=== PATIENT | female | born 1945 | race Caucasian/White ===

== ENCOUNTER 2017-01-25 17:01 | Inpatient (IN) | payer MEDICARE, OTHER ==
--- NOTE | ~2017-01-25 | HP ---
Unit #: [id number] #: [id number] Patient: YORDY BECKER [id number] [facility] [place], [place] [address] [id number] I MR#: [id number] NAME: YORDY BECKER ROOM: 59988 Age: 71 Sex: F Admission Date: 01/25/2017 : 1945 Attending Physician: Kari Abbasi M.D. Primary Care Physician: Primary Care Physician No HISTORY AND PHYSICAL CHIEF COMPLAINT Low oxygen at dialysis. HISTORY OF PRESENT ILLNESS The patient is a 71-year-old female with past medical history of COPD, chronic respiratory failure, end-stage renal disease on dialysis, Elie granulomatosis, chronic anemia, hypothyroidism, lung cancer, who presented to the emergency department from dialysis for evaluation of the above. The patient states that she has had a two- to three-day history of increasing shortness of breath and nonproductive cough. She also reports fever and chills. She denies current chest pain but did have some chest discomfort about a week ago. She denies any vomiting or diarrhea. In the emergency department, temperature was 100.5, pulse 100, oxygen saturation 95% on 3 liters, blood pressure 108/88. Chest x-ray shows small right pleural effusion as well as scattered parenchymal opacities. White blood cell count is 14.8. She was given a gram of Tylenol, 125 mg of Solu-Medrol, 500 mL of normal saline as well as 15 grams of Kayexalate, vancomycin, Zosyn and tobramycin. Potassium is 5.7. She is being admitted to [facility] for evaluation and further treatment. PAST MEDICAL HISTORY 1. Admission to [facility] in January 2016 for lung cancer. She underwent resection (no records). She denies having radiation or chemotherapy. She sees Dr. Vargas. 2. COPD followed by Dr. Lopez. 3. Chronic respiratory failure on 3 liters of oxygen per nasal cannula. 4. End-stage renal disease on dialysis Wednesday, Wednesday, and Wednesday followed by Dr. Hogue. 5. Chronic anemia. 6. Hypothyroidism. 7. Echocardiogram, 08/25/2010, showed an ejection fraction greater than 55% with mild mitral regurgitation. PAST SURGICAL HISTORY 1. Lung resection for cancer. 2. Hysterectomy. 3. Back surgery. 4. Left breast lumpectomy. 5. Fistula right upper extremity. 6. EGD and colonoscopy. 7. Bilateral hip surgery. Unit #: [id number] #: [id number] Patient: YORDY BECKER ALLERGIES No known allergies. HOME MEDICATIONS Include: 1. Lyrica. 2. Symbicort. 3. Zofran. 4. Renvela. 5. Levothyroxine. 6. Midodrine. 7. Lasix. 8. Simvastatin. 9. Diazepam. 10. PhosLo. 11. Hydrocodone. 12. Sodium bicarbonate. 13. Omeprazole. 14. Prednisone. 15. Metronidazole. 16. Dicyclomine. Home medications will need to be reviewed and verified. SOCIAL HISTORY The patient quit smoking. She denies alcohol use. Her CODE STATUS is a FULL CODE. FAMILY HISTORY Notable for lung cancer. REVIEW OF SYSTEMS A complete review of systems is negative except as indicated in the HPI. PHYSICAL EXAMINATION VITAL SIGNS: Temperature 100.5, pulse 100, respirations 18, blood pressure 108/88, oxygen saturation is 95% on 3 liters. GENERAL: The patient is a female who is awake and alert in no acute distress. HEENT: Head is atraumatic. Mucous membranes are moist. NECK: Supple. Trachea is midline. LUNGS: Decreased breath sounds with a few scattered rhonchi. Breathing is not labored. HEART: Regular rate and rhythm. ABDOMEN: Soft, nontender. Bowel sounds present in all four quadrants. EXTREMITIES: Nontender with no pedal edema. NEUROLOGIC: Patient is awake and alert. She follows commands. PSYCHIATRIC: Mood and affect are normal. Patient is cooperative. SKIN: Demonstrates a few scattered ecchymoses involving the lower extremities. DIAGNOSTIC STUDIES LABORATORY: Complete blood count notable for white blood cell count of 14.8, platelets 125. Troponin less than 0.05. Comprehensive metabolic panel notable for potassium 5.7, chloride 93, BUN 21, creatinine 5.9. Lactic acid 1.2. Rapid flu screen is negative. Unit #: [id number] #: [id number] Patient: YORDY BECKER IMAGING: Chest x-ray shows possible small right pleural effusion as well as scattered parenchymal opacities. CARDIOVASCULAR: EKG shows sinus rhythm, with marked sinus arrhythmia at a rate of 97 beats per minute. ASSESSMENT The patient is a 71-year-old female with: 1. Pneumonia, concerning for possible healthcare-associated pneumonia. The patient received vancomycin, tobramycin and Zosyn in the emergency department. 2. Sepsis with lactic acid of 1.2. 3. Chronic obstructive pulmonary disease exacerbation. 4. Chronic respiratory failure on 3 liters of oxygen per nasal cannula. 5. End-stage renal disease on dialysis Wednesday, Wednesday, and Wednesday. 6. Hyperkalemia. The patient's potassium is 5.7. She received 15 grams of Kayexalate in the emergency department. 7. History of Elie granulomatosis. 8. Chronic anemia. 9. Hypothyroidism. 10. History of lung cancer, status post resection. 11. Former smoker. PLAN 1. Admit to intermediate level. 2. Healthy-heart diet if passes bedside swallow. 3. Normal saline at 75 mL per hour. 4. Blood cultures x2. 5. Sputum culture and sensitivity. 6. Procalcitonin level. 7. Vancomycin IV, tobramycin IV, Zosyn IV pending further workup. 8. DuoNeb q.4 h. p.r.n. 9. Solu-Medrol 80 mg IV q.12 h. 10. Sepsis protocol with repeat lactic acid. 11. Consult Dr. Lopez regarding COPD and possible pneumonia. 12. Supplemental oxygen. 13. Serial cardiac enzymes. 14. Repeat BMP later this evening to follow up hyperkalemia. 15. Consult Dr. Hogue regarding end-stage renal disease and dialysis needs. 16. Check TSH. 17. P.r.n. Tylenol. 18. Protonix for GI prophylaxis since the patient will be on Solu-Medrol. 19. SCDs for DVT prophylaxis. 20. Monitor blood pressure closely. 21. Repeat labs in the morning. 22. Additional workup and consultants based on above. Regarding CODE STATUS the patient is a FULL CODE. Dictated by Unit #: [id number] #: [id number] Patient: DOMEzekielYORDY M.D. AW/cs TD: 01/25/2017 19:44 JOB #: [id number] HISTORY AND PHYSICAL X Kari Abbasi MD HISTORY AND PHYSICAL
--- NOTE | ~2017-01-25 | EKG ---
PATIENT: YORDY BECKER UNIT #: [id number] Ventricular Rate: 97 BPM Atrial Rate: 89 BPM P-R Interval: 136 ms QRS Duration: 70 ms Q-T Interval: 342 ms QTC Calculation(Bezet): 434 ms P [place]: 57 degrees Calculated R [place]: -60 degrees Calculated T [place]: 48 degrees Diagnosis Line: Sinus rhythm with marked sinus arrhythmia Diagnosis Line: Left anterior fascicular block Diagnosis Line: Cannot rule out Inferior infarct (masked by Diagnosis Line: fascicular block?) , age undetermined Diagnosis Line: Cannot rule out Anterior infarct , age Diagnosis Line: undetermined Diagnosis Line: Abnormal ECG Diagnosis Line: When compared with ECG of 06-DEC-2014 00:39, Diagnosis Line: Premature atrial complexes are no longer Present Diagnosis Line: Minimal criteria for Anterior infarct are now Diagnosis Line: Present Diagnosis Line: QT has shortened Diagnosis Line: Confirmed by DANIELLE CANSECO MD ([id number]) on Diagnosis Line: 01/26/2017 8:17:40 AM INTERPRETING MD: HARLEEN WOLFE
--- NOTE | ~2017-01-25 | DS ---
Unit #: [id number] #: [id number] Patient: YORDY BECKER [id number] [address] [id number] I MR#: [id number] NAME: YORDY BECKER ROOM: 560 Age: 71 Sex: F Admission Date: 01/25/2017 : 1945 Discharge Date: 01/30/2017 Attending Physician: Thomas Barlow M.D. Primary Care Physician: Primary Care Physician No DISCHARGE SUMMARY HISTORY OF PRESENT ILLNESS This is a 71-year-old female, who has history of multiple medical problems, was admitted on 01/25/2017 for increasing shortness of air. She was admitted as a COPD exacerbation. She was treated with the IV antibiotic. At some point, she did receive the Zosyn and vancomycin, which was subsequently switched to the cefepime. She was also treated with the IV steroids. She clinically improved. Since she has known history of end-stage renal disease, she received hemodialysis. She also had a nonsustained ventricular tachycardia and atrial arrhythmia. She was seen by the Cardiology, Dr. Garsia's group. At some point, she did become bradycardic. She was seen by the Cardiology. Her metoprolol was discontinued and she is being discharged home. DISCHARGE DIAGNOSES Include chronic obstructive pulmonary disease exacerbation, atrial arrhythmias, nonsustained ventricular tachycardia, end-stage renal disease, on hemodialysis, hypothyroidism, anemia of chronic disease, Elie granulomatosis, history of orthostatic hypotension. MEDICATIONS At discharge include prednisone 10 mg daily, Lyrica 75 mg t.i.d., Zofran, diazepam 5 mg t.i.d., Omnicef 300 mg p.o. b.i.d., furosemide 20 mg b.i.d., simvastatin 20 mg by mouth at bedtime, midodrine 5 mg p.o. daily as needed, allopurinol 100 mg daily, hydrocodone with acetaminophen 7.5/325 mg one tablet p.o. t.i.d. as needed, sevelamer carbonate 800 mg p.o. t.i.d., omeprazole 40 mg daily, levothyroxine 50 mcg daily. CONDITION AT DISCHARGE Stable. DISPOSITION To home. FOLLOWUP Follow up with Cardiology as an outpatient. Follow up with nephrology group for further hemodialysis. Dictated by... Lisa Frye/emi Unit #: [id number] #: [id number] Patient: YORDY BECKER TD: 01/31/2017 19:23 JOB #: [id number] DISCHARGE SUMMARY X Milo Woodward MD X DISCHARGE SUMMARY
--- NOTE | ~2017-01-25 | CR72 ---
[facility] A Service of [facility] & [facility] RADIOLOGY TEXT RESULTS PATIENT: YRODY BECKER LOCATION: [facility] 560-01 : [birth year] UNIT #: [id number] AGE: [address]: EDEN CLANCY MD SEX: F ORDER DR: [id number] [facility] [address] [place], [place] [address] [id number] I MR#: [id number] Acc #: [id number] NAME: YORDY BECKER : 1945 SEX: F STUDY DATE/TIME: 01/25/2017 16:47 UNIT: [facility] ROOM: [facility] STUDY DESCRIPTION: CR Chest Single View Portable Attending Physician: Kari Abbasi M.D. Ordering Physician: Lalito Alvarez M.D. Primary Care Physician: Primary Care Physician No MEDICAL IMAGING REPORT This report is preliminary unless electronic signature is present EXAM Portable chest HISTORY Shortness of air, fever. COMPARISON 02/19/2016, CT chest 12/10/2016. FINDINGS AP portable view of the chest demonstrates right-sided volume loss with slight elevation of the right hemidiaphragm and a small right pleural effusion. Scattered parenchymal opacities are seen in the mid and lower lung zones most likely representing areas of atelectasis, scarring or fibrosis. Patchy areas of hyperinflation and hyperlucency compatible with background emphysema. Heart size within normal limits. Mediastinum unremarkable. Mild aortic atherosclerotic changes. No visible pneumothorax. Dictated by... Miquel Fernandez M.D. THIS IS AN ELECTRONICALLY VERIFIED REPORT Miquel Fernandez M.D. at 01/26/2017 6:31 PM DEBBY/nate TD: 01/26/2017 06:28 JOB #: [id number] MEDICAL IMAGING REPORT COPY
--- NOTE | ~2017-01-25 | EKG ---
PATIENT: YORDY BECKER UNIT #: [id number] Ventricular Rate: 58 BPM Atrial Rate: 58 BPM P-R Interval: 170 ms QRS Duration: 74 ms Q-T Interval: 450 ms QTC Calculation(Bezet): 441 ms P [place]: 41 degrees Calculated R [place]: -20 degrees Calculated T [place]: 28 degrees Diagnosis Line: Sinus bradycardia with Premature atrial complexes Diagnosis Line: with Aberrant conduction Diagnosis Line: Otherwise normal ECG Diagnosis Line: When compared with ECG of 28-JAN-2017 18:33, Diagnosis Line: (unconfirmed) Diagnosis Line: No significant change was found Diagnosis Line: Confirmed by MARIAM GRIFFITH MD ([id number]) on 01/30/2017 Diagnosis Line: 7:41:25 AM INTERPRETING MD: NACHO WOLFE
--- NOTE | ~2017-01-25 | HM ---
Unit #: [id number] #: [id number] Patient: YORDY BECKER [id number] [address] [id number] I MR#: [id number] NAME: YORDY BECKER : 1945 SEX: F STUDY DATE/TIME: UNIT: C5B ROOM: [facility] STUDY DESCRIPTION: Holter Monitor Attending Physician: Thomas Barlow M.D. Primary Care Physician: No Primary Care Physician CARDIOLOGY REPORT EXAM Holter Monitor DATE APPLIED 01/30/2017 DATE SCANNED 02/02/[address] Silas Barlow READ BY Dr. Silas Garsia REASON FOR TEST Bradycardia. COMMENTS 1. Underlying rhythm is normal sinus at an average heart rate of 63 beats per minute. Slowest recorded heart rate is 36, maximum recorded heart rate is 160. 2. Very frequent premature atrial contractions are noted. There are numerous premature atrial couplets. 3. There is one 23 beat run of supraventricular tachycardia at a rate of 135 beats/minute seen at 11:18 p.m. spontaneously converting to normal sinus rhythm. 4. Occasional periods of sinus bradycardia with an RR interval of 1.6 or 1.8 seconds are noted. 5. Very infrequent premature ventricular contractions were recorded. Computer erroneously counted PACs as PVCs and there are no documented runs of ventricular tachycardia on this monitored tracing. 6. There is no AV burton block, sinus arrest or sinus pause. 7. The patient did not report any symptoms or activity diary. IMPRESSION Abnormal 24 hour ambulatory monitoring shows: 1. Normal sinus rhythm. 2. Very frequent premature atrial contractions. 3. One run of paroxysmal supraventricular tachycardia at a rate of 140 per minute lasting 23 beats, spontaneously converting to normal sinus rhythm without intervening bradycardia. 4. No significant ventricular arrhythmias. Unit #: [id number] #: [id number] Patient: YORDY BECKER Dictated by... Lisa Blood TD: 02/19/2017 06:51 JOB #: [id number] CARDIOLOGY REPORT Page 1 of 1 X Kieran Garsia MD HOLTER MONITOR REPORT
--- NOTE | ~2017-01-25 | CO ---
Unit #: [id number] #: [id number] Patient: YORDY BRANDT [id number] [place], [place] [address] [id number] I MR#: [id number] NAME: YORDY BRANDT ROOM: 560 Age: 71 Sex: F Admission Date: 01/25/2017 : 1945 Attending Physician: Thomas Barlow M.D. Primary Care Physician: Ina Primary Care Physician Consultation Date: 01/28/2017 CONSULTATION REPORT REVISED REPORT REASON FOR CONSULTATION Bradycardia and second-degree AV block and frequent PVCs. HISTORY OF PRESENT ILLNESS This is a 71-year-old white female who has seen Dr. Ortega in the past, has a history of a nonobstructive CAD, had a cath in 2011, ejection fraction 55% to 60% on last echo 10/2016 and has mild pulmonary artery hypertension and also wears continuous oxygen and has chronic respiratory failure with COPD, has end-stage renal disease on hemodialysis, hypertension, hypothyroidism, chronic anemia, had lung cancer last year and it is in remission and report of some atrial arrhythmias on Holter a few years back. She was sent from the dialysis center with low O2 saturation. According to the patient, two to three days prior to admission she was having increased shortness of breath especially with exertion and an increased nonproductive cough and fever and chills. She denied any dizziness, chest pain, nausea or vomiting or diarrhea with the admission. She did mention that about a week ago she had an episode while she was sitting watching television in her chair that she had an onset of left anterior chest wall pain. She said it lasted about 10 or 15 minutes. She said it felt like just a squeezing sensation. She denied any radiation of the pain, denied any dizziness, presyncope or syncope, no diaphoresis or nausea. She said it resolved and there were no further issues. Patient has been complaining of some occasional palpitations but that has been ongoing. In the emergency room the patient was found by x-ray to have a probable pneumonia and was admitted for exacerbation of her COPD. She also was hyperkalemic, potassium was 5.7. She was given Kayexalate. She was started on IV antibiotics. She has been progressively improving. Her initial EKG showed sinus rhythm with a short run of what appears to be paroxysmal supraventricular tachycardia or atrial tachycardia. She has underlying sinus rhythm. Her telemetry today was showing a slowing of her ventricular rate. Telemetry shows runs of bradycardia with heart rate 38 to 46 beats per minute occasionally with nonconducted PACs and frequent PACs and occasional PVCs. Patient is asymptomatic. We have been consulted to assist with evaluation and management. PAST MEDICAL HISTORY 1. In 10/2016 a 2D echo, LVEF of 55% to 60% with elevated RVSP 36 mmHg, mild pulmonary artery hypertension and mild mitral regurgitation and impaired RV relaxation. 2. In 2011 cardiac cath revealed LVEF of 55% to 60% with very mild Unit #: [id number] #: [id number] Patient: YORDY BRANDT pulmonary hypertension and nonobstructive CAD and the LAD had less than 30% mid stenosis. 3. Hypertension. 4. Hyperlipidemia. 5. Chronic respiratory failure. 6. COPD, wears continuous home oxygen. 7. End-stage renal disease, on hemodialysis. 8. Hypothyroidism. 9. Chronic anemia, has a history of peptic ulcer disease. 10. Reformed smoker. 11. History of Elie granulomatosis. 12. History of atrial arrhythmias on a Holter in 2006. 13. Peripheral neuropathy. 14. History of lung carcinoma in 2016, had a resection and is in remission. 15. Peripheral neuropathy. 16. Orthostatic hypotension. 17. Patient is on the kidney transplant list and follows the transplant team. PAST SURGICAL HISTORY 1. Lung resection for cancer [place] [address] Vargas. 2. Hysterectomy. 3. Back surgery. 4. Left breast lumpectomy which was benign. 5. Fistula in the right upper extremity. 6. EGD and colonoscopy. 7. Bilateral hip surgery. HOME MEDICATIONS 1. Lasix 20 mg p.o. b.i.d. 2. Lyrica 75 mg p.o. t.i.d. 3. Zofran 4 mg p.o. q.6 h. p.r.n. 4. Renvela 800 mg p.o. t.i.d. q.a.c. 5. ProAmatine 5 mg p.o. daily p.r.n. 6. Levothyroxine 50 mcg p.o. daily 7. Levothyroxine 100 mcg p.o. q. Wednesday and Wednesday. 8. Valium 5 mg p.o. t.i.d. p.r.n. 9. Zocor 20 mg p.o. q.h.s. 10. Hydrocodone and acetaminophen 7.5/325 mg one tablet p.o. t.i.d. p.r.n. 11. Omeprazole 40 mg p.o. daily. 12. Prednisolone 5 mg p.o. daily. ALLERGIES No known drug allergies. SOCIAL HISTORY Patient lives with her spouse. She is very sedentary due to her multiple medical problems. She quit smoking years ago. No alcohol or illicit drug use. FAMILY HISTORY She has two of her brothers who have had coronary artery disease. REVIEW OF SYSTEMS See details in HPI. Unit #: [id number] #: [id number] Patient: YORDY BRANDT PHYSICAL EXAMINATION GENERAL: On exam Mrs. Brandt is a 71-year-old white female in no acute respiratory distress. She is awake, alert and oriented. VITAL SIGNS: Blood pressure is 130/50. Heart rate 82, respirations 18, temperature 98.9, O2 sats 97% on 2 L. NECK: Trachea midline. No thyromegaly or lymphadenopathy. Normal carotid upstrokes. No jugular venous distention. HEART: S1, S2, regular rate and rhythm. No clicks, murmurs or rubs. LUNGS: Very diminished, otherwise clear. ABDOMEN: Slightly obese, nontender, positive bowel sounds present. EXTREMITIES: Pedal pulses are palpable. Trace of pedal edema. DIAGNOSTIC STUDIES LABORATORY DATA: Today's labs show glucose is 120, BUN 43, creatinine was 6.0, eGFR is 7.4, sodium 144, potassium 4.4, chloride 101, CO2 29, calcium 7.9, phosphorus is 5.7, magnesium is 2.2, total protein 6.1, albumin 3.5, bilirubin total is 0.8, AST at 15, ALT 10 and alkaline phosphatase is 69, WBCs 12.9, hemoglobin 10.1, hematocrit 31.1 and platelets 108. Initial cardiac enzymes: CK-MB is less than 1.0, troponin less than 0.05 and CMN-MB is less than 1.0 and troponin less than 0.05. Negative influenza A and B. Urinalysis shows 1+ leukocyte esterase, 2+ protein, 0.2 urobilinogen and 25 to 50 WBCs. Blood cultures preliminary report so far are negative. IMAGING: Chest x-ray on admission shows right-sided volume loss with slight elevation of the right hemidiaphragm and a small right pleural effusion. Scattered opacities seen in the mid and lower lung zones likely representing atelectasis, scarring or fibrosis and also indications of emphysema, mild aortic atherosclerotic changes. CARDIOVASCULAR: EKG shows normal sinus rhythm with ventricular rate 97 beats per minute with a left anterior fascicular block, questionable inferior anterior infarct age undetermined, frequent premature atrial complexes. Telemetry is showing sinus rhythm with frequent nonconducted PACs with slowing of the ventricular rate to as low as 38 with frequent PACs and occasional PVCs. IMPRESSION 1. Bsjyv-sz-ibfxmob respiratory failure, exacerbation of chronic obstructive pulmonary disease and pneumonia. 2. Hyperkalemia. 3. End-stage renal disease, on hemodialysis. 4. Atrial arrhythmias, runs of nonconducted PACs, frequent PACs, and PVCs. 5. Left ventricular ejection fraction of 55% to 60% with mild pulmonary hypertension on two-dimensional echocardiogram in 10/2016. 6. Mild obstructive coronary artery disease and catheterization in 2011. 7. Hypothyroidism. 8. Chronic anemia. 9. Peripheral neuropathy. 10. Orthostatic hypotension. PLAN 1. Treatment for pneumonia and overall the patient is improving. 2. Telemetry showing occasional runs of sinus bradycardia with frequent nonconducted premature atrial contractions, frequent PACs and Unit #: [id number] #: [id number] Patient: YORDY BRANDT occasional PVCs. The patient is asymptomatic. Reviewed all the patient's medications. She is not on any beta marcelina or medication that would affect the heart rate. 3. Patient had dialysis yesterday. Her potassium today is 4.4 with a magnesium 2.2. 4. Will obtain an EKG today to confirm the rhythm. Her TSH was obtained. It was normal. 5. Will discuss with Dr. Garsia any further testing and recommendations to follow. 6. On exam there are no signs or symptoms of acute congestive heart failure or unstable angina. Patient did have some chest pain over a week ago. It was brief. As mentioned her last cath four years ago did not show any significant blockage but may need to have some type of stress test/ischemic heart disease workup during this admission or shortly after as an outpatient. 7. Further recommendations pending per Dr. Garsia. 8. Patient is on ProAmatine and Lasix. 9. Will obtain a fasting lipid profile and add aspirin to her regimen. Dictated by... Ashly Vanessa A.P.R.N. for Lisa Blood/darin TD: 01/28/2017 17:02 JOB #: [id number] CC: Olena/invision Please Delete CONSULTATION REPORT X Ashly Vanessa APRN CONSULTATION REPORT
[2017-01-25 16:40] LABS: BASOPHIL# 0.1 X10e3 (0-0.3); BASOPHIL% 0.4 % (0-2.5); EOSINOPHIL% 0.1 % (0.0-7.0); HEMATOCRIT 41.1 % (35.0-45.0); LYMPHOCYTE# 0.9 X10e3 (1.0-3.5); LYMPHOCYTE% 5.8 % (17.0-45.0); MEAN CELL VOLUME 98.6 FL (83-96); MEAN CORPUSCULAR HEMOGLOBIN 31.1 PG (28-34); MEAN CORPUSCULAR HGB CONC 31.5 g/dL (30-36); MEAN PLATELET VOLUME 8.5 FL (6.5-11.5); MONOCYTE# 1.3 X10e3 (0-1.0); MONOCYTE% 8.9 % (3.0-12.0); NEUTROPHIL# 12.5 X10e3 (1.5-7.1); NEUTROPHIL% 84.8 % (40-75); PLATELET COUNT 125 X10e3 (140-420); RED BLOOD COUNT 4.17 X10e (3.90-5.30); RED CELL DISTRIBUTION WIDTH 14.6 % (11.0-15.5); WHITE BLOOD COUNT 14.8 X10e3 (4.0-10.5)
[2017-01-25 16:42] LABS: DIFF IND NO
[2017-01-25 16:57] LABS: POC - CKMB <1.0 ng/mL (0.0-7.9); POC - TROPONIN <0.05 ng/mL (<=0.05)
[~2017-01-25 17:01] MED LIST: ACETAMINOPHEN650 M4 PO; AMBIEN PO; ANEXSIA 7.5/3251 TA1 PO; ANTACID650 MG PO; BACTRIM DS TABL1 TA1 PO; BUMEX2 MG PO; CALCIUM + VITAM1 TAB PO; CALCIUM 500 + D1 TAB PO; CARDIZEM CD180 M1 PO; COMBIVENT INH14.7 GM IN; COMBIVENT MININEB INH; COMBIVENT U/D3 M2 INH; COMBIVENT U/D3 M3; COMBIVENT U/D3 ML INH; CYTOXAN50 MG PO; DAILY VIT PO; DIALYVITE 5000 T5 MG PO; DIAZEPAM PO; ESTRADIOL0.5 MG PO; FOLIC ACID PO; HYDRALAZINE HCL50 MG PO; HYDROCODON-ACE1 EAC9 PO; HYDROCODONE-APA1 T56 PO; IRON SUCROSE COMPLEX IV; LASIX20 MG PO; LEVOTHYROXINE50 MCG PO; LISINOPRIL-HCTZ1 T19 PO; LORTAB 10-5001 EACH PO; METOLAZONE2.5 MG PO; MULTIVITAMIN1 UDCAP PO; NEPHROCAPS CAPSU1 MG PO; NEXIUM PO; NITROGLYGERIN0.4 MG SL; OMEPRAZOLE40 M1 PO; OMNICEF300 M1 PO; ONDANSETRON HCL4 MG; ONDANSETRON ODT4 MG PO; PHOSLO667 M1; PHOSLO667 M1 PO; PHYTONADIONE IV; PREDNISONE PO; PREDNISONE5 M1 PO; PRO-AMATINE5 MG PO; PROCRIT SUBQ; PROTONIX PO; PROVENTIL INH; RENVELA800 MG PO; SENSIPAR30 MG PO; SIMVASTATIN20 MG PO; SYMBICORT INH; SYNTHROID PO; THERAPEUTIC M1 TA4 PO; TYLENOL325 M1 PO; TYLOX1 CAP 5/50 PO; VALIUM2 MG PO; ZINC PO; ZOCOR20 MG PO; ZOLPIDEM TARTRAT5 MG PO; ZYRTEC PO; [UNRECOGNIZED DRUG - MIXTURE] PO
[2017-01-25 17:04] LABS: ALBUMIN SERUM 4.1 g/dL (3.5-5.0); BILIRUBIN, DIRECT 0.2 mg/dL (0.0-0.2); BILIRUBIN,INDIRECT 0.7 mg/dL (0.0-0.9); BILIRUBIN,TOTAL 0.9 mg/dL (0.2-2.0); BUN/CREATININE RATIO 3.55; CALCIUM SERUM 8.5 mg/dL (8.4-10.2); CREATININE SERUM 5.9 mg/dL (0.6-1.4); GLOM FILT RATE Estimated 7.5 mL/min (>60); PROTEIN TOTAL SERUM 7.4 g/dL (6.0-8.3)
[2017-01-25 17:05] LABS: POTASSIUM 5.7 mmol/L (3.5-5.1)
[2017-01-25 17:24] LABS: INFLUENZA A NEG (NEG); INFLUENZA B NEG (NEG)
[2017-01-25 18:38] LABS: POC - CKMB <1.0 ng/mL (0.0-7.9); POC - TROPONIN <0.05 ng/mL (<=0.05)
[2017-01-26] MEDS ORDERED: LASIX20 MG PO (00:14)
[2017-01-26] MEDS ORDERED: LYRICA75 MG PO (00:18)
[2017-01-26] MEDS ORDERED: ZOFRAN ODT4 MG PO (00:32)
[2017-01-26 00:33] LABS: BUN/CREATININE RATIO 4.34; CALCIUM SERUM 7.4 mg/dL (8.4-10.2); CREATININE SERUM 6.9 mg/dL (0.6-1.4); GLOM FILT RATE Estimated 6.3 mL/min (>60); POTASSIUM 4.9 mmol/L (3.5-5.1)
[2017-01-26] MEDS ORDERED: RENVELA800 MG PO (00:44)
[2017-01-26] MEDS ORDERED: PRO-AMATINE5 M1 PO (00:45)
[2017-01-26] MEDS ORDERED: LEVOTHYROXINE50 MCG PO (00:46)
[2017-01-26] MEDS ORDERED: LEVOTHYROXINE100 MCG PO (00:48)
[2017-01-26] MEDS ORDERED: VALIUM10 MG PO (00:49)
[2017-01-26] MEDS ORDERED: ZOCOR20 MG PO (00:50)
[2017-01-26] MEDS ORDERED: HYDROCODONE-A1 UDTA4 PO (00:51)
[2017-01-26] MEDS ORDERED: OMEPRAZOLE40 M1 PO (00:52)
[2017-01-26] MEDS ORDERED: PREDNISOLONE5 MG PO (00:52)
[2017-01-26 06:35] LABS: HEMATOCRIT 35.5 % (35.0-45.0); HEMOGLOBIN 11.4 gm/dL (12.0-16.0); MEAN CELL VOLUME 98.1 FL (83-96); MEAN CORPUSCULAR HEMOGLOBIN 31.5 PG (28-34); MEAN CORPUSCULAR HGB CONC 32.1 g/dL (30-36); RED BLOOD COUNT 3.62 X10e (3.90-5.30); RED CELL DISTRIBUTION WIDTH 14.5 % (11.0-15.5); WHITE BLOOD COUNT 12.5 X10e3 (4.0-10.5)
[2017-01-26 07:28] LABS: ALBUMIN SERUM 3.5 g/dL (3.5-5.0); BILIRUBIN,TOTAL 0.9 mg/dL (0.2-2.0); BUN/CREATININE RATIO 4.8; CALCIUM SERUM 8.3 mg/dL (8.4-10.2); CREATININE SERUM 7.5 mg/dL (0.6-1.4); GLOM FILT RATE Estimated 5.7 mL/min (>60); MAGNESIUM 2.2 mg/dL (1.6-3.0); PHOSPHOROUS 6.6 mg/dL (2.5-4.6); POTASSIUM 4.9 mmol/L (3.5-5.1); PROTEIN TOTAL SERUM 6.1 g/dL (6.0-8.3)
[2017-01-26 07:31] LABS: %MB 3.7 % (0.0-4.0); MB 3.2 ng/ml
[2017-01-27 06:31] LABS: HEMATOCRIT 31.1 % (35.0-45.0); HEMOGLOBIN 10.1 gm/dL (12.0-16.0); MEAN CELL VOLUME 97.4 FL (83-96); MEAN CORPUSCULAR HEMOGLOBIN 31.8 PG (28-34); MEAN CORPUSCULAR HGB CONC 32.6 g/dL (30-36); MEAN PLATELET VOLUME 8.7 FL (6.5-11.5); RED BLOOD COUNT 3.19 X10e (3.90-5.30); RED CELL DISTRIBUTION WIDTH 14.4 % (11.0-15.5); WHITE BLOOD COUNT 12.9 X10e3 (4.0-10.5)
[2017-01-27 06:46] LABS: BUN/CREATININE RATIO 7.66; CALCIUM SERUM 7.6 mg/dL (8.4-10.2); GLOM FILT RATE Estimated 4.6 mL/min (>60); POTASSIUM 5.1 mmol/L (3.5-5.1)
[2017-01-28 06:11] LABS: BUN/CREATININE RATIO 7.16; CALCIUM SERUM 7.9 mg/dL (8.4-10.2); GLOM FILT RATE Estimated 7.4 mL/min (>60); MAGNESIUM 2.2 mg/dL (1.6-3.0); PHOSPHOROUS 5.7 mg/dL (2.5-4.6); POTASSIUM 4.4 mmol/L (3.5-5.1)
[2017-01-28 09:31] LABS: URINE SOURCE CLEAN CATCH
[2017-01-28 09:36] LABS: URINE APPEARANCE CLEAR; URINE BILIRUBIN NEG (NEG); URINE BLOOD NEG (NEG); URINE COLOR YELLOW; URINE GLUCOSE NEG (NEG); URINE KETONE NEG (NEG); URINE LEUKOCYTE ESTERASE 1+ (NEG); URINE NITRATE NEG (NEG); URINE PROTEIN 2+ (NEG); URINE SPECIFIC GRAVITY 1.015 (1.003-1.035); URINE UROBILINOGEN 0.2 MG/DL (NEG)
[2017-01-28 09:38] LABS: CULTURE INDICATED? YES; URBCS1 AUWI 0-2 /[HPF] (0-2); URINE BACTERIA AUWI NEG (NEGATIVE); URINE SQUAMOUS EPITHELIAL CELL MOD /[HPF]; UWBCS1 AUWI 25-50 (0-5)
[2017-01-29 05:21] LABS: HEMATOCRIT 30.1 % (35.0-45.0); HEMOGLOBIN 9.9 gm/dL (12.0-16.0); MEAN CELL VOLUME 97.8 FL (83-96); MEAN CORPUSCULAR HEMOGLOBIN 32.1 PG (28-34); MEAN CORPUSCULAR HGB CONC 32.8 g/dL (30-36); RED BLOOD COUNT 3.08 X10e (3.90-5.30); RED CELL DISTRIBUTION WIDTH 14.3 % (11.0-15.5)
[2017-01-29 06:33] LABS: BUN/CREATININE RATIO 8.24; CALCIUM SERUM 7.6 mg/dL (8.4-10.2); CREATININE SERUM 7.4 mg/dL (0.6-1.4); GLOM FILT RATE Estimated 5.8 mL/min (>60); POTASSIUM 4.3 mmol/L (3.5-5.1)
[2017-01-30] MEDS ORDERED: OMNICEF300 MG PO (11:28)
[2017-01-30] MEDS ORDERED: ZYLOPRIM100 MG PO (11:29)
[2017-01-30] MEDS ORDERED: PREDNISONE10 MG/DOSE PO (11:29)
[2017-01-30 13:49] LABS: HEMATOCRIT 32.4 % (35.0-45.0); HEMOGLOBIN 10.6 gm/dL (12.0-16.0); MEAN CELL VOLUME 97.6 FL (83-96); MEAN CORPUSCULAR HEMOGLOBIN 31.9 PG (28-34); MEAN CORPUSCULAR HGB CONC 32.7 g/dL (30-36); MEAN PLATELET VOLUME 8.4 FL (6.5-11.5); RED BLOOD COUNT 3.32 X10e (3.90-5.30)
[2017-01-30 13:51] LABS: WHITE BLOOD COUNT 10.2 X10e3 (4.0-10.5)
[2017-01-30 14:13] LABS: BUN/CREATININE RATIO 7.42; CALCIUM SERUM 7.2 mg/dL (8.4-10.2); CREATININE SERUM 6.6 mg/dL (0.6-1.4); GLOM FILT RATE Estimated 6.6 mL/min (>60); POTASSIUM 3.8 mmol/L (3.5-5.1)
== END 2017-01-30 19:23 | disposition home or self-care (01) | DRG 189 ==
LOC: CED 17:01 → CEDOF 18:30 → C5B 22:34
PROVIDERS: Emergency Medicine; Family Medicine; Internal Medicine; Internal Medicine Pulmonary Disease
PROC: 5A1D60Z (ICD-10-PCS; principal; 2017-01-27)
PROC: B24BZZZ Ultrasonography of Heart with Aorta (ICD-10-PCS; 2017-01-28)
DX: J96.20 Acute and chronic respiratory failure, unspecified whether with hypoxia or hypercapnia (principal); J18.9 Pneumonia, unspecified organism; I47.2 Ventricular tachycardia; M31.30 Wegener's granulomatosis without renal involvement; I27.2 Other secondary pulmonary hypertension; I12.0 Hypertensive chronic kidney disease with stage 5 chronic kidney disease or end stage renal disease; N18.6 End stage renal disease; J44.0 Chronic obstructive pulmonary disease with (acute) lower respiratory infection; J44.1 Chronic obstructive pulmonary disease with (acute) exacerbation; Z87.891 Personal history of nicotine dependence; Z99.2 Dependence on renal dialysis; I49.9 Cardiac arrhythmia, unspecified; E03.9 Hypothyroidism, unspecified; D63.8 Anemia in other chronic diseases classified elsewhere; E87.5 Hyperkalemia; I44.1 Atrioventricular block, second degree; I25.10 Atherosclerotic heart disease of native coronary artery without angina pectoris; Z99.81 Dependence on supplemental oxygen; E78.5 Hyperlipidemia, unspecified; G62.9 Polyneuropathy, unspecified; Z85.118 Personal history of other malignant neoplasm of bronchus and lung; Z90.710 Acquired absence of both cervix and uterus; Z80.1 Family history of malignant neoplasm of trachea, bronchus and lung
CPT/HCPCS: 36415; 71010; 80048; 80053; 80061; 80076; 80200; 80202; 81003; 82308; 82550; 82553; 82947; 83605; 83735; 84100; 84443; 84484; 85025; 85027; 87040; 87070; 87086; 87205; 87633; 87804; 93005; 93225; 93226; 93306; 94640; 94760; 96374; 99285; J0692; J1815; J2543; J2920; J2930; J3260; J3370

== ENCOUNTER → 2017-04-20 | Outpatient (CLI) | payer MEDICARE, OTHER ==
[~2017-04-20] MED LIST changes: +HYDROCODONE-A1 UDTA4 PO; +LEVOTHYROXINE100 MCG PO; +LYRICA75 MG PO; +OMNICEF300 MG PO; +PREDNISOLONE5 MG PO; +PREDNISONE10 MG/DOSE PO; +PRO-AMATINE5 M1 PO; +VALIUM10 MG PO; +ZOFRAN ODT4 MG PO; +ZYLOPRIM100 MG PO
--- NOTE | ~2017-04-20 | MY11 ---
[facility] A Service of [facility] RADIOLOGY TEXT RESULTS PATIENT: YORDY BECKER LOCATION: [facility] : 47 UNIT #: [id number] AGE: [address]: HALEY FRIAS MD SEX: F ORDER DR: [id number] [place] [id number] O MR#: [id number] Acc #: [id number] NAME: YORDY BECKER : 1945 SEX: F STUDY DATE/TIME: 04/20/2017 10:17 UNIT: [facility] ROOM: STUDY DESCRIPTION: MY Mammogram Screening Dig Que Attending Physician: Haley Frias M.D. Referring Physician: Haley Frias M.D. Ordering Physician: Haley Frias M.D. Primary Care Physician: Haley Frias M.D. MEDICAL IMAGING REPORT This report is preliminary unless electronic signature is present. EXAM Digital screening mammogram 04/20/2017 HISTORY 71-year-old woman. Positive family history, maternal grandmother. Prior left breast biopsy. Annual screen. COMPARISON Mammograms date to 12/20/2007 with most recent comparison 03/24/2016. FINDINGS Digital imaging of each breast was completed utilizing screening protocol. Surgical skin marker placed upper central left breast location. Review includes FDA-approved CAD device. Breast parenchyma remains quite dense and stable. Vascular calcification is noted. There are no suspicious microcalcifications. There is no interval-occurring breast mass and no architectural deformity. IMPRESSION Benign mammogram. Annual screening recommended. Patient's over the age of 40 are entered into a reminder system with target due date for the next mammogram. BIRADS: 2 Benign findings Dictated by... Maximo Ring M.D. THIS IS AN ELECTRONICALLY VERIFIED REPORT [facility] A Service of [facility] RADIOLOGY TEXT RESULTS PATIENT: YORDY BECKER LOCATION: [facility] : 47 UNIT #: [id number] AGE: [address]: HALEY FRIAS MD SEX: F ORDER DR: Maximo Ring M.D. at 04/20/2017 2:42 PM ERNESTO/connie TD: 04/20/2017 14:18 JOB #: [id number] MEDICAL IMAGING REPORT Page 1 of 1
== END | disposition home or self-care (01) ==
LOC: SMAM 09:45
DX: Z12.31 Encounter for screening mammogram for malignant neoplasm of breast (principal); Z80.3 Family history of malignant neoplasm of breast
CPT/HCPCS: G0202

== ENCOUNTER → 2017-06-17 | Outpatient (CLI) | payer MEDICARE, OTHER ==
--- NOTE | ~2017-06-17 | CT57 ---
[facility] A Service of [facility] RADIOLOGY TEXT RESULTS PATIENT: YORDY BECKER LOCATION: [facility] : 47 UNIT #: [id number] AGE: [address]: Tom Vargas MD SEX: F ORDER DR: [id number] [place] [id number] [facility] [place], [place] [address] [id number] O MR#: [id number] [facility] #: [id number] NAME: YORDY BECKER : 1945 SEX: F STUDY DATE/TIME: 06/17/2017 12:40 UNIT: [facility] ROOM: STUDY DESCRIPTION: CT Chest Wo Cont Attending Physician: Tom Vargas M.D. Referring Physician: Tom Vargas M.D. Ordering Physician: Tom Vargas M.D. Primary Care Physician: Dawit Kay M.D. MEDICAL IMAGING REPORT This report is preliminary unless electronic signature is present EXAM CT chest without contrast. INDICATION Restaging lung cancer. 6-month followup. Observation for response to therapy and disease progression. PROCEDURE Unenhanced CT chest. This CT exam was performed with one or more of the following radiation dose reduction techniques: automatic control, adjustment of mA and/or kV according to patient size, and iterative reconstruction. COMPARISON 12/10/2016 FINDINGS Emphysema. Postsurgical change in the right lower lobe. Stable postsurgical scarring in the right lower lobe. There is no new nodule or dense consolidation. No adenopathy. Coronary artery calcification. Stable 1.6 cm left adrenal adenoma. Uncomplicated cholelithiasis. No aggressive appearing bone lesion. IMPRESSION Stable post surgical change in the right lower lobe. No evidence for residual or recurrent disease and there is no evidence for metastatic disease in the chest. Dictated by... Dave Reed M.D. THIS IS AN ELECTRONICALLY VERIFIED REPORT Dave Reed M.D. at 06/21/2017 8:18 AM [facility] A Service [facility] RADIOLOGY TEXT RESULTS PATIENT: [facility]ORD[facility] BECKER [id number] [birth year] UNIT #: [id number] AGE: [address]: Tom Vargas MD SEX: F ORDER DR: ARLET/rnr TD: 06/17/2017 16:14 JOB #: [id number] MEDICAL IMAGING REPORT Page 1 of 1 COPY
== END | disposition home or self-care (01) ==
LOC: CCAT 12:11
DX: Z08 Encounter for follow-up examination after completed treatment for malignant neoplasm (principal); Z85.118 Personal history of other malignant neoplasm of bronchus and lung; Z90.2 Acquired absence of lung [part of]
CPT/HCPCS: 71250